=== PATIENT | female | born 1955 | race Caucasian/White ===

== ENCOUNTER → 2016-11-19 | Outpatient (CLI) | payer MEDICAID | END | disposition home or self-care (01) | LOC: CFH 12:21 | PROVIDERS: ATTEND Family Medicine | DX: Z12.31 Encounter for screening mammogram for malignant neoplasm of breast (principal) | CPT/HCPCS: G0202 ==

== ENCOUNTER 2017-09-17 03:57 | Emergency (ER) | payer MEDICAID ==
[~2017-09-17] VITALS: Ht 154.9 cm; Wt 77.5 kg
[2017-09-17 03:59] VITALS: BP 143/79
[2017-09-17] MEDS ORDERED: PROPARACAINE OPHTH 0.5%, 15ML ONE (04:27)
[2017-09-17] MEDS ORDERED: FLUORESCEIN OPHTHALMIC 1 MG STRIP ONE (04:27)
[2017-09-17] MEDS ORDERED: FLUORESCEIN OPHTHALMIC 1 MG STRIP EACHEYE ONE (04:30)
[2017-09-17] MEDS ORDERED: PROPARACAINE OPHTH 0.5%, 15ML EACHEYE ONE (04:30)
== END 2017-09-17 04:59 | disposition home or self-care (01) ==
LOC: ED 04:53
DX: H10.021 Other mucopurulent conjunctivitis, right eye (principal); E11.9 Type 2 diabetes mellitus without complications; J00 Acute nasopharyngitis [common cold]; J02.9 Acute pharyngitis, unspecified
CPT/HCPCS: 99283

== ENCOUNTER → 2017-12-13 | Outpatient (CLI) | payer MEDICAID | END | disposition home or self-care (01) | LOC: CFH 10:49 | PROVIDERS: ATTEND Family Medicine | DX: Z12.31 Encounter for screening mammogram for malignant neoplasm of breast (principal) | CPT/HCPCS: 77067 ==

== ENCOUNTER → 2020-12-28 | Outpatient (CLI) | payer MEDICARE | END | disposition home or self-care (01) | LOC: CFH 10:56 | PROVIDERS: ATTEND Family Medicine | DX: Z12.31 Encounter for screening mammogram for malignant neoplasm of breast (principal); N95.1 Menopausal and female climacteric states; M81.0 Age-related osteoporosis without current pathological fracture | CPT/HCPCS: 77067; 77080 ==